=== PATIENT | male | born 1985 | race Caucasian/White ===

== ENCOUNTER 2017-04-02 12:23 | Emergency (ER) | payer OTHER ==
[~2017-04-02] VITALS: Ht 190.5 cm; Wt 104.5 kg
[2017-04-02 12:33] VITALS: BP 114/73
[2017-04-02] MEDS ORDERED: ibuprofen tablet 400 MG TABLET PO ONE (13:40)
[2017-04-02] MEDS ORDERED: acetaminophen 325mg tablet PO ONE (13:40)
[2017-04-02] MEDS ORDERED: ibuprofen 200mg tablet PO ONE (13:45)
[2017-04-02] MEDS ORDERED: IBUP-1985 PO (14:23)
== END 2017-04-02 14:33 | disposition home or self-care (01) ==
LOC: ER 12:24
DX: S16.1XXA Strain of muscle, fascia and tendon at neck level, initial encounter (principal); S39.012A Strain of muscle, fascia and tendon of lower back, initial encounter; Z60.2 Problems related to living alone; V89.2XXA Person injured in unspecified motor-vehicle accident, traffic, initial encounter; Y93.89 Activity, other specified; Y92.89 Other specified places as the place of occurrence of the external cause; Y99.8 Other external cause status
CPT/HCPCS: 72040; 99284